=== PATIENT | female | born 1950 | race Caucasian/White ===

== ENCOUNTER 2022-10-09 11:18 | Outpatient (CLI) | payer MEDICARE, BC, SELFPAY | END 2022-10-09 11:19 | disposition home or self-care (01) | LOC: AMB 10-12 10:17 | PROVIDERS: PCP Family Medicine; Visit Provider Family Medicine | DX: R53.1 Weakness (principal) | CPT/HCPCS: A0998 ==

== ENCOUNTER 2022-10-10 20:57 | Emergency (ER) | payer MEDICARE, BC, SELFPAY ==
[2022-10-10 21:06] VITALS: BP 146/86; PULSE 76; RESP 16; TEMP 36.8; O2SAT 96
--- NOTE | 2022-10-10 21:23 | ED_ITS ---
HPI - General Adult General Chief complaint: Fall/Minor Trauma Stated complaint: fall Time Seen by Provider: 10/10/22 21:23 History of Present Illness HPI narrative: Pt complaining of right knee and berg pain. Pt stating Tylenol and Oxycodone are not working. Pt fell yesterday and today. Pt has appoint for physical therapy tomorrow in [place]. pt reports using wheelchair at home. had niece spend the night last night to help here 72-year-old woman presenting to the emergency department with complaint of right knee and lower leg area pain. Has been escalating lately and then gave out on her this last week she fell make taking care to fall on her left side. She has had injections in the past. Contacted Dr. Crooks who apparently prescribed 10 mg tablets of oxycodone. She has been taking them now not having had opiates for years she says and that just are not helping. She is calmly describing 15/10 pain. Indicates area of pain in the medial right knee and the lower right leg. Has been taking Tylenol oxycodone. Been told not to take up by ibuprofen apparently by Dr. Forrest due to her reflux. Has needed help at home just due to the degree of pain she is having. Again leg when out last week that does not sound like it is an absolutely uncommon occurrence. But then the leg when out again yesterday requiring EMS to help her up. She sat in a chair for some hours feeling like she could manage. Accompanied here by niece who is little frustrated with her at this point. Tegan in alf and had gotten some help from some neighbors. She was also recommended by Dr. Costello to use her wheelchair. She does have an electric wheelchair which has been helpful in getting around at the moment Related Data Home Medications Medication Instructions Recorded Confirmed citalopram 20 mg tablet 20 mg PO 02/18/22 02/18/22 omeprazole 40 mg capsule,delayed 40 mg PO 02/18/22 02/18/22 release trazodone 50 mg tablet 25 mg PO 02/18/22 02/18/22 Allergies Allergy/AdvReac Type Severity Reaction Status Date / Time No Known Drug Allergies Allergy Verified 02/18/22 15:51 Review of Systems Status of ROS: Reports: 6 or more systems reviewed and unremarkable except as noted in History and below [facility] Medical History Pre-diabetes ?R73.03 - Prediabetes (ICD-10) Chest pain ?R07.9 - Chest pain, unspecified (ICD-10) Depression ?F32.A - Depression, unspecified (ICD-10) Vaginal pain ?R10.2 - Pelvic and perineal pain (ICD-10) Vaginal discharge ?N89.8 - Other specified noninflammatory disorders of vagina (ICD-10) Obstructive sleep apnea (adult) (pediatric) ?G47.33 - Obstructive sleep apnea (adult) (pediatric) (ICD-10) Morbid obesity ?E66.01 - Morbid (severe) obesity due to excess calories (ICD-10) Laryngitis ?J04.0 - Acute laryngitis (ICD-10) Breast cancer (04/28/12) ?C50.919 - Malignant neoplasm of unspecified site of unspecified female breast (ICD-10) Benign paroxysmal positional vertigo ?H81.10 - Benign paroxysmal vertigo, unspecified ear (ICD-10) Surgical History H/O cystoscopy ?Z98.890 - Other specified postprocedural states (ICD-10) H/O: hysterectomy ?Z90.710 - Acquired absence of both cervix and uterus (ICD-10) History of cholecystectomy ?Z90.49 - Acquired absence of other specified parts of digestive tract (ICD- 10) Hx of appendectomy ?Z90.49 - Acquired absence of other specified parts of digestive tract (ICD- 10) History of bilateral mastectomy (04/28/12) ?Z90.13 - Acquired absence of bilateral breasts and nipples (ICD-10) Status post arthroscopy of right shoulder (12/20/08) ?Z98.890 - Other specified postprocedural states (ICD-10) Exam Narrative: Exam Narrative: Pleasant. Calm. Overweight. Head looks to be atraumatic. Examination of the right leg in question the are obese. There is some tenderness to palpation along the medial knee. There is a good deal of tenderness and some swelling then around the lateral aspect of the lower right leg down toward the ankle. Most tenderness in this area appears though to be about 3 in above the lateral malleolus. She also has some demonstrable pain be knee through the fibular head. There is a small abrasion the right lower outer leg. The lower right leg is a little more swollen the outer aspect than the left. Const: Vital Signs, click to edit/add: Vital Signs - 24 hr 10/10/22 21:06 Temperature 98.3 F Pulse Rate [Right Pulse Oximeter] 76 Respiratory Rate 16 Blood Pressure [Le ft Upper Arm] 146/86 H Pulse Oximetry 96 Oxygen Delivery Me thod Room Air Documenting provider has reviewed patient's vital signs: yes Course Vital Signs Vital signs: Initial Vital Signs Temperature 98.3 F 10/10/22 21:06 Temperature Source Temporal Artery Scan 10/10/22 21:06 Pulse Rate 76 10/10/22 21:06 Pulse Rhythm Regular 10/10/22 21:06 Respiratory Rate 16 10/10/22 21:06 Blood Pressure 146/86 H 10/10/22 21:06 Blood Pressure Mean 106 H 10/10/22 21:06 Blood Pressure Position Semi-Fowlers 10/10/22 21:06 Pulse Oximetry 96 10/10/22 21:06 Oxygen Delivery Method Room Air 10/10/22 21:06 Vital Signs Temperature 98.3 F 10/10/22 21:06 Pulse Rate 76 10/10/22 21:06 Respiratory Rate 16 10/10/22 21:06 Blood Pressure 146/86 H 10/10/22 21:06 Pulse Oximetry 96 10/10/22 21:06 Oxygen Delivery Method Room Air 10/10/22 21:06 Temperature 98.3 F 10/10/22 21:06 Pulse Rate 76 10/10/22 21:06 Respiratory Rate 16 10/10/22 21:06 Blood Pressure 146/86 H 10/10/22 21:06 Pulse Oximetry 96 10/10/22 21:06 Oxygen Delivery Method Room Air 10/10/22 21:06 Medical Decision Making MDM Narrative Medical decision making narrative: Will augment with some pain medication here and needs to do some imaging. Be difficult to assess ligamentous injury I think. I suspect that most knee sprain and exacerbation of underlying osteoarthritic pain. I have ordered x-rays of the right tib-fib and knee. Difficult to get an assessment of actual pain as calmly noting rather high degree of pain. Did dose with 2 tabs of 5/325 Percocet as well as injection of ketorolac. Imaging reviewed by me seems to show osteoarthritic changes but no acute bony abnormality. Degenerative knee in particular. I did go to re-examine and seems to have more tenderness in the calf and I appreciated prior. Suspect immobility and requested ultrasound of this leg. Imaging discussed with exceptional children's teacher noting absence of DVT. She has been able to sleep in the emergency department it appears. Pain is improved. Flexion of the knee still does cause pain. I think would benefit f rom knee immobilizer. Puzzling a bit as has oxycodone available and higher strength at home. Unclear why that would have not worked better. Did receive ketorolac here as well though. See patient discharge plan Medical Records Medical records reviewed: Yes I reviewed the patient's medical records Discharge Plan Discharge Clinical Impression: Leg pain, Osteoarthritis of knee Patient Disposition: Home w/ Parent or Adult Condition: Improved Additional Instructions: I think in these cases icing is always appropriate. I like those ice bags with the screw tablets. He can film with about a tray of ice and then water and then use an Edmond wrap to hold onto the area that hurts. Ice to 3 times daily over the next few days. I would probably start with your knee. I understand that you have physical therapy starting on Wednesday an appointment w ith Dr. Gallegos on Wednesday. I would still keep those appointments. Wear your knee immobilizer for comfort/as needed over the next week. You have oxycodone available. I think a singular dosing of 10 mg combined with 1000 mg of acetaminophen would be fine if needed. Prescriptions: No Action trazodone 50 mg tablet 25 mg PO Patient Comments: TAKE 0.5-1 TABLETS BY MOUTH AT BEDTIME. omeprazole 40 mg capsule,delayed release(DR/EC) 40 mg PO citalopram 20 mg tablet 20 mg PO Patient Comments: TAKE 1 TABLET BY MOUTH EVERY DAY Follow Up/Referrals: Shade Mcnair MD [Primary Care Provider] - Stand Alone Forms: [employer] Info Instructions
--- NOTE | 2022-10-10 21:42 | CRLHL7_ITS ---
For Patients: As a result of the Century Cures Act, medical imaging exams and procedure reports are released immediately into your electronic medical record. You may view this report before your referring provider. If you have questions, please contact your health care provider. INDICATION: Fall and outer leg pain. TECHNIQUE: Right tibia and fibula, 3 views. COMPARISON: Right knee radiographs 02/07/2020. FINDINGS: No acute fracture identified. The knee and ankle appear normally aligned. Degenerative changes of the knee. No significant knee joint effusion. Small plantar and Achilles calcaneal spurs. Soft tissues are unremarkable. IMPRESSION: No acute findings. Dictated by Luh Connor MD @ 10/10/2022 11:54:56 PM (Electronically Signed)
[2022-10-10] MEDS: KETOROLAC 60 MG/2 ML inj 45 MG IM (21:59)
[2022-10-10] MEDS: OxyCODONE/APAP 5-325 TABLET 2 TAB PO (21:59)
--- NOTE | 2022-10-11 | CRLHL7_ITS ---
For Patients: As a result of the Century Cures Act, medical imaging exams and procedure reports are released immediately into your electronic medical record. You may view this report before your referring provider. If you have questions, please contact your health care provider. INDICATION: Right lower extremity pain and swelling TECHNIQUE: Ultrasound venous duplex lower right extremity. Compression venous exam was performed using velasco-scale, color Doppler, and spectral Doppler imaging. COMPARISON: None. FINDINGS: Sonographic imaging demonstrates the right common femoral, femoral, popliteal, posterior tibial, peroneal and greater saphenous and the contralateral left common femoral veins to be fully compressible with normal color Doppler blood flow. IMPRESSION: No sonographic evidence of the right lower extremity deep venous thrombosis. Dictated by Kelly Pena MD @ 10/11/2022 2:01:34 AM Dictated by: Kelly Pena MD @ 10/11/2022 02:01:46 (Electronically Signed)
== END 2022-10-11 02:55 | disposition home or self-care (01) ==
PROVIDERS: Emergency Provider Family Medicine; PCP Family Medicine
DX: M17.11 Unilateral primary osteoarthritis, right knee (principal); M79.604 Pain in right leg
CPT/HCPCS: 73590; 93971; 96372; 99284; A9270; J1885

== ENCOUNTER 2024-06-21 11:06 | Outpatient (RCR) | payer MEDICARE, BC, SELFPAY ==
--- NOTE | 2024-06-21 11:49 | PT.OPEX ---
PT [facility] Outpatient Eval PT [facility] Outpatient Eval Start: 06/21/24 10:39 Freq: Status: Active Protocol: Document 06/21/24 10:44 HLA (Rec: 06/21/24 11:25 HLA [id number]) E-signed By Corry Michael, PT, DPT Physical Therapy Outpatient Evaluation Insurance Information Recert Due Date 09/18/24 Insurance Name Medicare B,[employer] Medical Diagnosis OA, undergoing R TKA 07/04/24. PMHx of obesity, chronic kidney disease, pre diabetes, anxiety, depression, PTSD, apnea, vertigo and falls Treating Diagnosis pain, stiffness, weakness R knee Referring MD Wang Subjective Preferred Name Marilyn Subjective Pt reports her R knee is bone on bone, painful, limits her walking. Pain Comments pain R knee, vee but no falls. Uses cane. Can go 2000 steps/day. Date of Last Physician Visit 06/12/24 Date of Surgery (If applicable) 07/04/24 Current Work Status Retired Precautions Treatment Precautions/Contraindications hx falls, obesity Weight Bearing Status Weight Bear as Tolerated Therapy Limitations/Systems Review Not Limited Objective Range of Motion AROM of shldrs full, elbow/ wrists/hands full R hip flex 0-100, abd 0-30, L hip 0-100 flex, abd 0-30 abd R knee flex 10-90 L 0-95 ankle DF to 10, PF to 50 B Strength 4/5 R LE, 4+/5 L LE UEs 5-/5 Swelling occ edema R knee Palpation medial joint line pain R knee Balance & Gait Amb antalgic R knee, does hold cane R hand, aware she should use L. Sitting good static/dynamic balance Standing fair static, fair dynamic with cane Sensation/Reflexes denies numbness/tingling feet and hands. Functional Test Performed & Score 5 time sit<>stand 16 sec functional reach 5.5 inches *shows fall risk Assessment Assessment/Impression Mary is a 73 year old female with hx R knee OA, obesity, chronic kidney disease, anxiety, depression, PTSD, apnea, vertigo, falls and prediabetes. She has had ongoing R knee pain with OA limiting her ability to amb, saw Dr. Wang and will be undergoing a R TKA on 07/04/24. She lives in the [facility], [place], drives. Uses a cane to walk because her knee vee mostly when going outdoors, no device in her apt . Has vertigo and sees a chiropractor regularly. Also gets PT at [facility] weekly for the past 2 years and will go there after surgery. Pt today presents with general weakness R > L LE, impaired ROM 5-95 R knee, difficulty amb due to fear of R knee buckling, does, uses cane in R hand. She rented a NICE machine. Pt has a cookie breaker, will borrow a walker, has a shower bench and bar if needed after surgery. [place] will be staying with her and she will do her PT [place] the [place] at [facility]. Pt was instructed in TKA ex program ( quad sets, ham sets, ankle pumps, heel slides, SAQ, SLR, seated knee flex/ext and hamstring stretches) per protocol to be practiced pre- operatively and for improved learning post-operatively. Pt was instructed in hospital post-op progression in PT, safety, fall prevention. Pt was instructed in positioning in chair, use of ice/polar care, bed, transfer safety, gt safety with walker, stairs, car transfers and outpatient therapy progression. Primary Functional Limitations harder to get shoes on, showers standing, gt limited due to fear of R knee buckling . Plan of Care Rehabilitation Potential Good Physical Therapy Goals 1. Within this session: Pt will verbalize understanding of pre-op/post-op safety, mobility and exercises with home program issued and pt returning for ongoing therapy after TKA replacement. Treatment Plan/Direct Interventions Dry Needling Frequency/Duration 1x. Patient Will Be Discharged From Therapy Completion of LTG(s),Skills Plateau,Independent w/HEP, Independently Progressing Evaluation Billing Untimed Code Treatment Minutes 20 PT Eval No Charge No Complexity Low Certification Information Initial Certification Date 06/21/24 Ending Certification Date 09/18/24 Provider Signature Required Yes Provider Signature Shows Agreement With POC & Medical Necessity Physician NPI Number Write NPI# Here Physician Comment/Change : Physician Signature & Date Requested Please Sign/Date Here
== END 2024-06-21 12:37 | disposition home or self-care (01) ==
PROVIDERS: PCP Family Medicine; Visit Provider Orthopaedic Surgery
DX: M17.11 Unilateral primary osteoarthritis, right knee (principal); Z96.651 Presence of right artificial knee joint; R53.1 Weakness; Z51.89 Encounter for other specified aftercare
CPT/HCPCS: 97110; 97161

== ENCOUNTER 2024-07-04 16:34 | Inpatient (IN) | payer MEDICARE, BC, SELFPAY ==
[2024-07-04] VITALS (18 sets, daily range): BP systolic 100–170; BP diastolic 44–100; PULSE 45–78; RESP 12–20; TEMP 36.1–36.9; O2SAT 91–99; BMI 50.3
[2024-07-04] MEDS: CELECOXIB 200 MG CAPSULE PO (09:50)
[2024-07-04] MEDS: ACETAMINOPHEN 500 MG TABLET 1000 MG PO ×3 (09:50→23:51)
[2024-07-04] MEDS: OXYCODONE (CR) 10 MG TAB.ER.12H PO (09:50)
[2024-07-04] MEDS: LACTATED RINGERS 1000 ML 1,000 ML 100 ML IV ×2 (10:10→13:58)
[2024-07-04] MEDS: SODIUM CHLORIDE 0.9 % (FLUSH) 10 ML SYRINGE IVF (10:14)
[2024-07-04] MEDS: fentaNYL 100 MCG/2 ML inj IVP (12:08)
[2024-07-04] MEDS: MIDAZOLAM HCL 1 MG/ML inj IVP (12:08)
--- NOTE | 2024-07-04 12:24 | SUR.PREOP ---
TIME?OUT:?1205 PT/jamarcus chou RN/karissa fierro MDA?VERIFICATION?OF?SURGICAL?SITE,?PROCEDURE,?AND?CONSENT OBTAINED?PRIOR?TO?INVASIVE?PROCEDURE.
[2024-07-04] MEDS: TRANEXAMIC ACID 100 MG/ML INJ 1000 MG IV (13:18)
[2024-07-04] MEDS: CEFAZOLIN 2 GM INJ IVP (13:18)
--- NOTE | 2024-07-04 15:07 | CRLHL7_ITS ---
For Patients: As a result of the Cures Act, medical imaging exams and procedure reports are released immediately into your electronic medical record. You may view this report before your referring provider. If you have questions, please contact your health care provider. Indication: Right knee arthroplasty Technique: Right knee 2 view Findings: Hardware from a right knee arthroplasty is in satisfactory position. Bone alignment is normal. No sign of acute fracture. There are postoperative changes in the soft tissues. Dictated by Greg Venegas MD @ 07/04/2024 8:29:26 PM (Electronically Signed)
--- NOTE | 2024-07-04 15:11 | PM.ORPRC ---
Procedure Note Date of procedure: 07/04/24 Procedure: PREOPERATIVE DIAGNOSIS: Right knee osteoarthritis POSTOPERATIVE DIAGNOSIS: Right knee osteoarthritis NAME OF OPERATION: Right total knee arthroplasty SURGEON: Jaret Wang MD MODELING TEACHER: CRISTOPHER Schmitt ANESTHESIA: Spinal ESTIMATED BLOOD LOSS: 0 mL COMPLICATIONS: None SPECIMENS: None DRAINS: None PREOPERATIVE ANTIBIOTICS: Ancef 2 grams, antibiotic impregnated cement IMPLANTS: 1. J&J Attune #6 revision CRS posterior stabilized femur, 14 mm x 50 mm cemented stem 2. # 5 revision CRS fixed-bearing tibia, 14 mm x 50 mm cemented stem 3. #6 revision CRS posterior stabilized, 6 mm fixed-bearing polyethylene 4. 38 patella INDICATIONS: The patient is a 73-year-old with a longstanding history of severe, unrelenting right knee pain secondary to end-stage (grade IV) right knee osteoarthritis. Despite appropriate nonoperative management, including activity modification, anti-inflammatories, isqt-vel-[id number] pain medication, bracing, physical therapy, and injections they continue to have pain and disability. Operative intervention was offered. The risks, benefits and expected outcomes were discussed in detail. These included but were not limited to: Infection, bleeding, injury to blood vessel or nerve, venous thromboembolism. All questions were answered to their satisfaction. Use of an resident care assistant was necessary throughout the case for patient positioning and safety, soft tissue retraction, and closure. A modifier 22 should be added to this case. The patient weighs 113 kg, BMI 50, 50 mm layer of adipose over the extensor mechanism. Preoperative range of motion was quite poor. All these factors made exposure quite difficult and more than doubled the time typically required to complete the case. Additionally, to decrease the risk of aseptic loosening stemmed components were used. This increased the cost of the case. PROCEDURE: Spinal anesthesia was administered. The patient was placed supine on the operating table. The resident care assistant made sure the patient was positioned appropriately. The lower extremity was prepped and draped in the usual sterile fashion. The limb was exsanguinated with the Miguel Ángel bandage. The pneumatic tourniquet was inflated to 300 mmHg. A standard anterior incision was made with the knee in flexion. Subcutaneous dissection was sharply taken through fascial layer #1. Full-thickness medial and lateral flaps were elevated. The resident care assistant retracted the soft tissues and protected them throughout the case. A standard subvastus approach was made. The patella was subluxed. The infrapatellar fat pad was debrided. The menisci and cruciate ligaments were sharply d?brided. Marginal osteophytes were d?brided with the rongeur. The drill was used to penetrate the femoral canal. The canal was aspirated and irrigated with pulse lavage. The intramedullary femoral guide was placed for a 5-degree valgus cut, removing 12 mm off the distal femur. The saw was used to make the cut. Whitesides line and the trans epicondylar axis were marked. The femoral sizing guide was pinned onto the distal femur. Three degrees of external rotation nicely parallels the transepicondylar axis. Pins were placed for posterior referencing. The four-in-one cutting guide was pinned onto the distal femur. The anterior, posterior, and chamfer cuts were made. The resident care assistant protected the collateral ligaments. The revision trial was placed. The box cuts were made. The drill was used x2. The stemmed, boxed trial was placed and was an excellent fit. Attention was then turned to the proximal tibia. Given the size of the patient's ankle, the intramedullary tibial guide was placed for a neutral varus/valgus cut with 3 degrees of posterior slope, removing 2 mm based off the medial tibial surface. The resident care assistant protected the collateral ligaments and the neurovascular bundle. The saw was used to make the cut. Trial components were placed. The knee was nicely balanced in both flexion and extension. The trial components were removed. The tray was placed in appropriate rotation, parallel to our tibial cutting pins. It was pinned by the resident care assistant and the drill x2 was used. The stemmed tibial trial was placed. The punch was used. The tray was removed. The punch was used again. Attention was then turned to the patella. Comanche patellar thickness was 21.5 mm. The lobster claw resection guide was used with the 9.5 mm julio. The saw was used to make the cut. Drill holes were made by the resident care assistant. The trial was placed and was an excellent fit. Cancellous surfaces were irrigated with pulse lavage and thoroughly dried by the resident care assistant. We cemented the tibial component, then the femoral component. We impacted the 6 mm polyethylene onto the tibial tray. The knee was brought into full extension. We then cemented the patellar component. Excessive cement was removed. The cement was allowed to harden. The knee was taken through a range of motion and was found to be nicely balanced in both flexion and extension. The patella tracks centrally. The resident care assistant did a three minute dilute Betadine solution soak. The resident care assistant irrigated the wound with 3 liters of normal saline via pulse lavage. The resident care assistant reapproximated the extensor mechanism with #1 Vicryl in an interrupted [id number]-[id number] fashion. The resident care assistant then ran the extensor mechanism with a #1 PDO Stratafix. The resident care assistant closed the subcutaneous tissues with a 3-0 Stratafix and the skin with a running 3-0 Stratafix in a subcuticular fashion. Glue was used to seal the skin. The resident care assistant placed a dry dressing. Sponge and needle counts were correct x2. The patient tolerated the procedure well. There were no apparent complications. They were carefully transferred to the hospital bed and taken to the postanesthesia care unit in satisfactory condition. PLAN: The patient will be mobilized with physical therapy. Aspirin will be used for DVT prophylaxis. They will be discharged to home once medically appropriate.
--- NOTE | 2024-07-04 15:58 | P.ANES_ITS ---
Anesthesia Charges Start Date/Time Anesthesia Start Date: 07/04/24 Anesthesia Start Time: 12:47 Stop Date/Time Anesthesia Stop Date: 07/04/24 Anesthesia Stop Time: 15:54 Summary Extremes of Age - Over 70 or under 1: MDA Coding CPT Codes CPT Codes: ANESTH KNEE ARTHROPLASTY - 79713 ([id number]) P3 - PATIENT W/SEVERE SYS DISEASE, QK - LIVESTOCK TRUCKER 2-4 CNCRNT ANES PROC, QX - LEAD NETWORK ARCHITECT SVC W/ MD MED DIRECTION Additional Codes: Summary - Extremes of Age - Over 70 or under 1: MDA ([id number])
--- NOTE | 2024-07-04 15:58 | W.PM.NB ---
Nerve Block Nerve Block Time Seen by Provider: 12:10 Date Seen: 07/04/24 Type of block requested by surgeon for post-operative analgesia: adductor canal Side: right Time out performed: Yes Verification of patient name: Yes Verification of date of : Yes Site marking: site marked Name of person performing procedure: Gavino Continuous monitoring Was continuous monitoring of O2 sat, B/P, cardiac technologist, recorded every 15 minutes?: Yes Procedure Checklist: sterile prep, needles and gloves Ultrasound guided. Images saved: Yes Medications given in 5ml increments after negative aspiration: Marcaine %: 0.25 mL: 15 Needle gauge: 20 Precedex (mcg): 25 Patient tolerated procedure well: Yes Block Charges Block Charge (with Pro Fee): Femoral Nerve Use of Ultrasound Machine for Block: Yes- US Guidance/pain block
--- NOTE | 2024-07-04 15:58 | W.ANESCHARGE ---
Anesthesia Charges Start Date/Time Anesthesia Start Date: 07/04/24 Anesthesia Start Time: 12:47 Stop Date/Time Anesthesia Stop Date: 07/04/24 Anesthesia Stop Time: 15:54 Summary Extremes of Age - Over 70 or under 1: MDA Coding CPT Codes CPT Codes: ANESTH KNEE ARTHROPLASTY - 39841 ([id number]) P3 - PATIENT W/SEVERE SYS DISEASE, QK - TUB PULLER 2-4 CNCRNT ANES PROC, QX - SHEET ROCK TAPER SVC W/ MD MED DIRECTION Additional Codes: Summary - Extremes of Age - Over 70 or under 1: MDA ([id number])
--- NOTE | 2024-07-04 16:00 | P.ANES_ITS ---
Anesthesia Charges Start Date/Time Anesthesia Start Date: 07/04/24 Anesthesia Start Time: 12:47 Stop Date/Time Anesthesia Stop Date: 07/04/24 Anesthesia Stop Time: 15:54 Summary Extremes of Age - Over 70 or under 1: TURNING MACHINE SET UP OPERATOR Coding CPT Codes CPT Codes: ANESTH KNEE ARTHROPLASTY - 41344 ([id number]) P3 - PATIENT W/SEVERE SYS DISEASE, QK - SENIOR PRODUCT MANAGER 2-4 CNCRNT ANES PROC, QX - TURNING MACHINE SET UP OPERATOR SVC W/ MD MED DIRECTION Additional Codes: Summary - Extremes of Age - Over 70 or under 1: TURNING MACHINE SET UP OPERATOR ([id number])
--- NOTE | 2024-07-04 16:00 | W.ANESCHARGE ---
Anesthesia Charges Start Date/Time Anesthesia Start Date: 07/04/24 Anesthesia Start Time: 12:47 Stop Date/Time Anesthesia Stop Date: 07/04/24 Anesthesia Stop Time: 15:54 Summary Extremes of Age - Over 70 or under 1: LEAD MANUFACTURING ENGINEER Coding CPT Codes CPT Codes: ANESTH KNEE ARTHROPLASTY - 63625 ([id number]) P3 - PATIENT W/SEVERE SYS DISEASE, QK - BUSINESS AND MARKETING TEACHER 2-4 CNCRNT ANES PROC, QX - LEAD MANUFACTURING ENGINEER SVC W/ MD MED DIRECTION Additional Codes: Summary - Extremes of Age - Over 70 or under 1: LEAD MANUFACTURING ENGINEER ([id number])
[2024-07-04] MEDS: CARBOXYMETHYLCELLULOSE (REFRESH PLUS) TEARS 1 DROP EYE-BOTH ×2 (18:32→19:40)
[2024-07-04] MEDS: LACTATED RINGERS 1000 ML 1,000 ML 75 ML IV (18:34)
[2024-07-04] MEDS: CEFAZOLIN 2 GM in 0.9 % SODIUM CHLORIDE Mini-bag 100 ML IVPB (18:41)
--- NOTE | 2024-07-04 19:21 | P.IMCN_ITS ---
Date of Consult Patient: Hugo Patient Consult date: 07/04/24 Requesting Physician: Orthopedics Primary Care Provider: Shade Mcnair MD Consult Narrative Reason for consult: Prediabetes, obesity, vertigo, insomnia Narrative: Mary Kerns is a 73 year old female with a h/o breast cancer 12 years ago, EMILIANO, obesity who underwent an elective right total hip arthroplasty by Dr. Wang today for severe osteoarthritis. She is doing well postoperatively. She notes feeling sleepy and having dry, scratchy eyes. She tells me that that happens sometimes. She also gets intermittent pains in her abdomen that stretch from her right upper quadrant to her umbilicus ever since she had her gallbladder out. She takes hyoscyamine as needed for that. Review of Systems Status of ROS: Reports: 6 or more systems reviewed and unremarkable except as noted in History and below [facility] Medical History (Updated 07/04/24 @ 19:51 by Kandy Nunez MD) IBS (irritable bowel syndrome) ?K58.9 - Irritable bowel syndrome, unspecified (ICD-10) Osteopenia of left hip ?M85.852 - Other specified disorders of bone density and structure, left thigh (ICD-10) EMILIANO (obstructive sleep apnea) ?G47.33 - Obstructive sleep apnea (adult) (pediatric) (ICD-10) Vertigo ?R42 - Dizziness and giddiness (ICD-10) Stage 3b chronic kidney disease ?N18.32 - Chronic kidney disease, stage 3b (ICD-10) Unspecified urinary incontinence ?R32 - Unspecified urinary incontinence (ICD-10) PTSD (post-traumatic stress disorder) ?F43.10 - Post-traumatic stress disorder, unspecified (ICD-10) Depression with anxiety ?F41.8 - Other specified anxiety disorders (ICD-10) Trigeminal neuralgia ?G50.0 - Trigeminal neuralgia (ICD-10) Pre-diabetes ?R73.03 - Prediabetes (ICD-10) Chest pain ?R07.9 - Chest pain, unspecified (ICD-10) Vaginal pain ?R10.2 - Pelvic and perineal pain (ICD-10) Vaginal discharge ?N89.8 - Other specified noninflammatory disorders of vagina (ICD-10) Morbid obesity ?E66.01 - Morbid (severe) obesity due to excess calories (ICD-10) Laryngitis ?J04.0 - Acute laryngitis (ICD-10) Breast cancer (04/28/12) ?C50.919 - Malignant neoplasm of unspecified site of unspecified female breast (ICD-10) Benign paroxysmal positional vertigo ?H81.10 - Benign paroxysmal vertigo, unspecified ear (ICD-10) Surgical History (Updated 07/04/24 @ 19:46 by Kandy Nunez MD) Status post total right knee replacement ?Z96.651 - Presence of right artificial knee joint (ICD-10) History of total right knee replacement (07/04/24) ?Z96.651 - Presence of right artificial knee joint (ICD-10) History of esophagogastroduodenoscopy (EGD) ?Z98.890 - Other specified postprocedural states (ICD-10) Hx of colonoscopy ?Z98.890 - Other specified postprocedural states (ICD-10) S/P right rotator cuff repair (~2009) ?Z98.890 - Other specified postprocedural states (ICD-10) H/O cystoscopy ?Z98.890 - Other specified postprocedural states (ICD-10) H/O: hysterectomy ?Z90.710 - Acquired absence of both cervix and uterus (ICD-10) History of cholecystectomy (~2014) ?Z90.49 - Acquired absence of other specified parts of digestive tract (ICD- 10) Hx of appendectomy ?Z90.49 - Acquired absence of other specified parts of digestive tract (ICD- 10) History of bilateral mastectomy (04/28/12) ?Z90.13 - Acquired absence of bilateral breasts and nipples (ICD-10) Status post arthroscopy of right shoulder (12/20/08) ?Z98.890 - Other specified postprocedural states (ICD-10) Family History Other CHF (congestive heart failure) Cardiovascular disease Diabetes High blood pressure Leukemia Lung cancer Myocardial infarction Pancreatic cancer Stroke Social History (Updated 07/04/24 @ 19:25 by Kandy Nunez MD) Narrative: Omi, great niece staying with her for a few days, then niece will stay for a few days. Neighbors also will help out. Denies tobacco use, denies EtOH, denies recreational drugs. What is your current living situation?: I presently have a place to live In past 12 months, lack of transportation kept you from medical appts, meetings, work, or getting things needed for daily living: no In the past 12 mos, have been you worried that your food would run out before you had money to buy more?: never true Smoking Status: Never smoker Do you use any of these nicotine containing products: None Second hand tobacco smoke exposure: No How often do you have a drink containing alcohol: never AUDIT-C Alcohol total score: 0 Non-prescribed substance use: denies use Caffeine: Yes How often does anyone, including family, friends and others, physically hurt you : never Meds Home Medications and Allergies Home Medications ?Medication ?Instructions ?Recorded ?Confirmed ?Type omeprazole 40 mg capsule,delayed 40 mg PO DAILY 02/18/22 07/04/24 History release trazodone 50 mg tablet 25 - 50 mg PO HS 02/18/22 07/04/24 History citalopram 20 mg tablet 20 mg PO DAILY 01/13/23 07/04/24 History hyoscyamine sulfate 0.125 mg tablet 0.125 mg PO Q4H PRN 01/13/23 07/04/24 History cinnamon bark 500 mg capsule 500 mg PO QDAY 05/17/23 07/04/24 History (Cinnamon) cyanocobalamin (vitamin B-12) 500 mcg PO QDAY 05/17/23 07/04/24 History 1,000 mcg tablet (Vitamin B-12) benzonatate 200 mg capsule 200 mg PO 3XD PRN cough 05/15/24 07/04/24 History codeine 10 mg-guaifenesin 100 mg/5 5 ml PO Q4H PRN cough 05/15/24 07/04/24 History mL oral liquid calcium 600 mg (as 1 tab PO DAILY 07/04/24 07/04/24 History carbonate)-vitamin D3 10 mcg (400 unit) tablet (Calcium 600 + D(3)) Allergies Allergy/AdvReac Type Severity Reaction Status Date / Time Influenza Virus Vaccines AdvReac Unknown Verified 07/04/24 10:25 Exam Narrative: Exam Narrative: General: No acute distress. Awake alert oriented x3. HEENT: Normocephalic atraumatic, pupils equally round and reactive to light and accommodation. Oropharynx clear. Mucous membranes are moist. No cervical lymphadenopathy, thyromegaly or carotid bruits. No JVD. Cardiovascular: Regular rate and rhythm. No murmurs, gallops, or rubs. Chest: No increased work of breathing. Clear to auscultation bilaterally. No crackles or wheezes. Abdomen: Bowel sounds present. Soft, nondistended, nontender. No hepatosplenomegaly or masses. Extremities: Right knee bandages are clean, dry, and intact. No edema, no cyanosis or clubbing. Skin: No jaundice, no pallor, no rashes. Neuro: Grossly intact. No focal deficits. Const: Vital Signs, click to edit/add: Vital Signs - 24 hr 07/04/24 10:08 07/04/24 12:08 07/04/24 12:15 Temperature 97.8 F Pulse Rate 73 55 L 52 L Respiratory Rate 20 20 20 Blood Pressure 140/70 H 118/54 L 100/53 L Pulse Oximetry 96 96 96 Oxygen Delivery Me thod Room Air Nasal Cannula Nasal Cannula Oxygen Flow Rate 3 3 07/04/24 15:55 07/04/24 16:00 07/04/24 16:05 Temperature 98.4 F Pulse Rate 60 64 60 Respiratory Rate 12 12 12 Blood Pressure 109/61 116/62 126/70 Pulse Oximetry 92 91 97 Oxygen Delivery Me thod Room Air Room Air Room Air Oxygen Flow Rate 07/04/24 16:10 07/04/24 16:15 07/04/24 16:20 Temperature Pulse Rate 62 60 61 Respiratory Rate 12 12 12 Blood Pressure 131/69 128/68 138/76 Pulse Oximetry 99 98 96 Oxygen Delivery Me thod Room Air Room Air Room Air Oxygen Flow Rate 07/04/24 16:25 07/04/24 16:37 07/04/24 16:45 Temperature 98 F 96.9 F L 96.9 F L Pulse Rate 60 59 L 48 L Respiratory Rate 14 14 14 Blood Pressure 128/79 139/74 152/83 H Pulse Oximetry 93 93 93 Oxygen Delivery Me thod Room Air Room Air Room Air Oxygen Flow Rate 07/04/24 17:00 07/04/24 17:15 07/04/24 17:30 Temperature 97.4 F L Pulse Rate 57 L 46 L 45 L Respiratory Rate 14 14 14 Blood Pressure 151/88 H 170/100 H 142/83 H Pulse Oximetry 92 92 93 Oxygen Delivery Me thod Room Air Room Air Room Air Oxygen Flow Rate 0 0 0 07/04/24 18:00 Temperature 97.5 F L Pulse Rate 48 L Respiratory Rate 14 Blood Pressure 158/78 H Pulse Oximetry 93 Oxygen Delivery Me thod Room Air Oxygen Flow Rate 0 Assessment and Plan Assessment and plan (1) Status post total right knee replacement: Problem comment: - 07/04/24 Felipe Status: Acute Assessment and Plan: - routine post op cares - VTE prophylaxis: Aspirin BID, SCDs (2) Benign paroxysmal positional vertigo: Problem comment: - intermittent Status: Chronic Assessment and Plan: - not currently vertiginous - continue home meclizine as needed (3) EMILIANO (obstructive sleep apnea): Problem comment: 07/06/2004 AHI/RDI:17 Status: Chronic Assessment and Plan: - monitor for excessive sleepiness and respiratory depression while on narcotics (4) Obesity: Problem comment: BMI 48.2 (previous BMI 45.9) Status: Chronic (5) Pre-diabetes: Problem comment: 06/15/24 HgbA1C 6.2% Status: Chronic (6) Lumbar degenerative disc disease: Status: Chronic
[2024-07-04] MEDS: OXYCODONE 5 MG TABLET PO ×2 (20:44→22:13)
[2024-07-04] MEDS: ASPIRIN 81 MG TABLET EC PO (22:11)
[2024-07-04] MEDS: SENNOSIDES 1 TAB TABLET 2 TAB PO (22:11)
[2024-07-04] MEDS: TRAZODONE HCL 50 MG TABLET PO (22:11)
--- NOTE | 2024-07-04 22:24 | PC.NURSE ---
Patient ambulating in the room/galloway with assist of 1, walker and gait belt. This is pt's first joint surgery. SCD's are in place. Rating pain at a 5/10 in right knee. Oxycodone given PRN. Ice in place. CMS is intact.
[2024-07-05] MEDS: CEFAZOLIN 2 GM in 0.9 % SODIUM CHLORIDE Mini-bag 100 ML IVPB (02:52)
[2024-07-05] MEDS: OXYCODONE 5 MG TABLET PO ×2 (02:54→09:04)
[2024-07-05 03:01] VITALS: BP 123/57; PULSE 64; RESP 16; TEMP 36.4; O2SAT 97
[2024-07-05] MEDS: MECLIZINE HCL 25 MG TABLET 12.5 MG PO (03:13)
[2024-07-05] MEDS: ACETAMINOPHEN 500 MG TABLET 1000 MG PO (05:57)
--- NOTE | 2024-07-05 06:23 | PC.NURSE ---
Pt alert and oriented x3. Afebrile. Pt reports 1-3/10 pain in right knee, managed with ice pack, scheduled and PRN medications. Pt's right knee dressing is CDI. Pt reports she has not passed gas yet. Pt is up SBA with walker and gait belt, voiding, and tolerating a regular diet.
[2024-07-05 06:50] LABS: Basophils Absolute Auto 0.01 K/uL (0.00-0.30); Basophils Percent Auto 0.1 % (0.0-3.0); Hematocrit 32.3 % (33.0-51.0); Immature Granulocytes Abs Auto 0.15 K/uL (0.00-0.30); Immature Granulocytes Pct Auto 1.5 %; Lymphocytes Percent Auto 8.4 % (20-44); Mean Corpuscular HGB Conc 34 gm/dL (32-36); Mean Corpuscular Hemoglobin 29 pg (26-34); Mean Corpuscular Volume 85 fL (80-100); Platelet Count* 200 K/uL (140-440); RDW Coefficient of Variation % 12.9 % (11.5-15.5); White Blood Count* 10.08 K/uL (4.50-11.00)
[2024-07-05 07:00] VITALS: BP 119/46; PULSE 68; RESP 18; TEMP 36.4; O2SAT 97
[2024-07-05 07:08] LABS: Slide Review Reflex No
[2024-07-05 07:18] LABS: Sodium* 134 mmol/L (135-149)
[2024-07-05 07:19] LABS: Potassium* 4.5 mmol/L (3.6-5.1)
[2024-07-05 07:22] LABS: Blood Urea Nitrogen* 17 mg/dL (7-30); Creatinine* 1.1 mg/dL (0.5-1.5); Est. Creatinine Clearance* 81.25; Estimated Glomerular Filt Rate 53 ml/min
[2024-07-05 07:29] LABS: Prothrombin Time 16.1 Seconds
[2024-07-05] MEDS: SENNOSIDES 1 TAB TABLET 2 TAB PO (09:05)
[2024-07-05] MEDS: ASPIRIN 81 MG TABLET EC PO (09:05)
[2024-07-05] MEDS: CITALOPRAM HYDROBROMIDE 20 MG TABLET PO (09:05)
[2024-07-05] MEDS: OMEPRAZOLE 20 MG CAPSULE DR 40 MG PO (09:05)
--- NOTE | 2024-07-05 09:10 | P.ORPN_ITS ---
Subjective Subjective Time Seen by Provider: 07:30 Date Seen: 07/05/24 Principal diagnosis: Status post right knee replacement Interval history: Marilyn is comfortable at rest. She denies nausea or vomiting. She will be discharging to home today. Ortho Exam Narrative Exam Narrative: Alert and oriented x3. Patient is in no acute distress. Converses without labored breathing. Hearing is grossly intact. Ambulates with a walker. Examination of the right knee shows dressing is intact. Mild edema. Mild effusion. CMS intact right lower extremity. She is able to straight leg raise. Calves are soft and nontender. Const Vital Signs, click to edit/add: Vital Signs - 24 hr 07/04/24 10:08 07/04/24 12:08 07/04/24 12:15 Temperature 97.8 F Pulse Rate 73 55 L 52 L Pulse Rate [Pulse Oximeter] Respiratory Rate 20 20 20 Blood Pressure 140/70 H 118/54 L 100/53 L Blood Pressure [Left Arm] Pulse Oximetry 96 96 96 Oxygen Delivery Method Room Air Nasal Cannula Nasal Cannula Oxygen Flow Rate 3 3 07/04/24 15:55 07/04/24 16:00 07/04/24 16:05 Temperature 98.4 F Pulse Rate 60 64 60 Pulse Rate [Pulse Oximeter] Respiratory Rate 12 12 12 Blood Pressure 109/61 116/62 126/70 Blood Pressure [Left Arm] Pulse Oximetry 92 91 97 Oxygen Delivery Method Room Air Room Air Room Air Oxygen Flow Rate 07/04/24 16:10 07/04/24 16:15 07/04/24 16:20 Temperature Pulse Rate 62 60 61 Pulse Rate [Pulse Oximeter] Respiratory Rate 12 12 12 Blood Pressure 131/69 128/68 138/76 Blood Pressure [Left Arm] Pulse Oximetry 99 98 96 Oxygen Delivery Method Room Air Room Air Room Air Oxygen Flow Rate 07/04/24 16:25 07/04/24 16:37 07/04/24 16:45 Temperature 98 F 96.9 F L 96.9 F L Pulse Rate 60 59 L 48 L Pulse Rate [Pulse Oximeter] Respiratory Rate 14 14 14 Blood Pressure 128/79 139/74 152/83 H Blood Pressure [Left Arm] Pulse Oximetry 93 93 93 Oxygen Delivery Method Room Air Room Air Room Air Oxygen Flow Rate 07/04/24 17:00 07/04/24 17:15 07/04/24 17:30 Temperature 97.4 F L Pulse Rate 57 L 46 L 45 L Pulse Rate [Pulse Oximeter] Respiratory Rate 14 14 14 Blood Pressure 151/88 H 170/100 H 142/83 H Blood Pressure [Left Arm] Pulse Oximetry 92 92 93 Oxygen Delivery Method Room Air Room Air Room Air Oxygen Flow Rate 0 0 0 07/04/24 18:00 07/04/24 19:00 07/04/24 23:48 Temperature 97.5 F L 98.2 F Pulse Rate 48 L 78 Pulse Rate [Pulse Oximeter] 67 Respiratory Rate 14 14 Blood Pressure 158/78 H 131/75 Blood Pressure [Left Arm] Pulse Oximetry 93 93 Oxygen Delivery Method Room Air Room Air Oxygen Flow Rate 0 0 07/04/24 23:48 07/04/24 23:48 07/05/24 03:01 Temperature 97.8 F 97.6 F Pulse Rate Pulse Rate [Pulse Oximeter] 67 64 Respiratory Rate 18 18 16 Blood Pressure Blood Pressure [Left Arm] 112/44 L 123/57 L Pulse Oximetry 95 95 97 Oxygen Delivery Method Room Air Room Air Room Air Oxygen Flow Rate 0 07/05/24 07:00 Temperature 97.6 F Pulse Rate Pulse Rate [Pulse Oximeter] 68 Respiratory Rate 18 Blood Pressure Blood Pressure [Left Arm] 119/46 L Pulse Oximetry 97 Oxygen Delivery Method Room Air Oxygen Flow Rate Assessment and Plan Assessment and plan (1) Status post total right knee replacement: Problem details: - 07/04/24 Felipe Status: Acute Assessment and Plan: Plan for discharge is today to home if they meet discharge criteria. DVT prophylaxis includes aspirin 81 mg twice daily x1 month, Compression stocki ngs as needed for swelling. Frequent ambulation, every hour throughout the day. Remove dressing in 1 week. Observe wound and phone Orthopedics with any questions or concerns Return to clinic in 1 week for a wound check Return to clinic in 6 weeks with surgeon Minimize narcotic use. Wean off and discontinue soon as possible. Activities as tolerated. No strenuous activity. Outpatient physical therapy as scheduled. Ice and elevate the operative extremity. No restriction on ice.
--- NOTE | 2024-07-05 12:06 | PC.NURSE ---
Discharge: Patient pleasant and cooperative, A&O. VSS, afebrile. Patient reports pain on her right knee, managed with PRN medication, see MAR. Tolerating regular diet. IV removed with tip intact. Discharge instructions provided, all questions answered. Discharged to home via wheelchair with family member.
== END 2024-07-05 11:48 | disposition home or self-care (01) | DRG 470 ==
LOC: OR 07-05 09:13 → MEDSURG 07-05 09:14
PROVIDERS: Admitting Provider Orthopaedic Surgery; PCP Family Medicine; Visit Provider Orthopaedic Surgery
PROC: 0SRC0J9 Replacement of Right Knee Joint with Synthetic Substitute, Cemented, Open Approach (ICD-10-PCS; CPT 27447; principal; 2024-07-04 11:45)
DX: M17.11 Unilateral primary osteoarthritis, right knee (principal); Z68.43 Body mass index [BMI] 50.0-59.9, adult; G89.18 Other acute postprocedural pain; G47.33 Obstructive sleep apnea (adult) (pediatric); E66.01 Morbid (severe) obesity due to excess calories; R42 Dizziness and giddiness; Z79.82 Long term (current) use of aspirin; R73.03 Prediabetes; G47.00 Insomnia, unspecified; K58.9 Irritable bowel syndrome, unspecified; M51.369 Other intervertebral disc degeneration, lumbar region without mention of lumbar back pain or lower extremity pain; N18.32 Chronic kidney disease, stage 3b; M85.852 Other specified disorders of bone density and structure, left thigh; R32 Unspecified urinary incontinence; F41.8 Other specified anxiety disorders; F43.10 Post-traumatic stress disorder, unspecified
CPT/HCPCS: 01402; 36415; 64447; 73560; 76942; 82565; 84132; 84295; 84520; 85025; 85610; 97110; 97116; 97161; 97166; 97530; 97535; 99100; A9270; C1776; J0665; J0690; J1100; J2250; J2405; J2704; J3010; J3490; J7120

== ENCOUNTER 2024-12-26 06:11 | Day surgery (SDC) | payer MEDICARE, BC, SELFPAY ==
[2024-12-26] VITALS (10 sets, daily range): BP systolic 112–138; BP diastolic 56–74; PULSE 62–83; RESP 14–20; TEMP 36.2–36.7; O2SAT 96–98; BMI 44.7
[2024-12-26] MEDS: SODIUM CHLORIDE 0.9 % (FLUSH) 10 ML SYRINGE IVF (07:00)
[2024-12-26] MEDS: LACTATED RINGERS 1000 ML 1,000 ML 100 ML IV (07:00)
--- NOTE | 2024-12-26 07:52 | P.ANES_ITS ---
Anesthesia Charges Start Date/Time Anesthesia Start Date: 12/26/24 Anesthesia Start Time: 07:23 Stop Date/Time Anesthesia Stop Date: 12/26/24 Anesthesia Stop Time: 08:31 Summary Extremes of Age - Over 70 or under 1: MDA Coding CPT Codes CPT Codes: ANESTH KNEE JOINT SURGERY - 68578 ([id number]) P3 - PATIENT W/SEVERE SYS DISEASE, QK - DOLLY OPERATOR 2-4 CNCRNT ANES PROC, QX - DIRECTOR NON PROFIT SVC W/ MD MED DIRECTION Additional Codes: Summary - Extremes of Age - Over 70 or under 1: MDA ([id number])
--- NOTE | 2024-12-26 07:52 | W.ANESCHARGE ---
Anesthesia Charges Start Date/Time Anesthesia Start Date: 12/26/24 Anesthesia Start Time: 07:23 Stop Date/Time Anesthesia Stop Date: 12/26/24 Anesthesia Stop Time: 08:31 Summary Extremes of Age - Over 70 or under 1: MDA Coding CPT Codes CPT Codes: ANESTH KNEE JOINT SURGERY - 68754 ([id number]) P3 - PATIENT W/SEVERE SYS DISEASE, QK - FLOORLEADER 2-4 CNCRNT ANES PROC, QX - POWER SYSTEM ELECTRICAL ENGINEER SVC W/ MD MED DIRECTION Additional Codes: Summary - Extremes of Age - Over 70 or under 1: MDA ([id number])
[2024-12-26] MEDS: BUPIVACAINE 0.25% 30 ML INJECTION (08:15)
--- NOTE | 2024-12-26 08:21 | P.ORPRC_ITS ---
Procedure Note Date of procedure: 12/26/24 Procedure: PREOPERATIVE DIAGNOSIS: Right total knee arthroplasty patellar clunk syndrome POSTOPERATIVE DIAGNOSIS: Right total knee arthroplasty patellar clunk syndrome NAME OF OPERATION: Right total knee arthroplasty arthroscopic debridement SURGEON: Jaret Wang MD PLATING TECHNICIAN: Rosalba Saravia PA-C ANESTHESIA: Spinal ESTIMATED BLOOD LOSS: 0 mL COMPLICATIONS: None SPECIMENS: None DRAINS: None PREOPERATIVE ANTIBIOTICS: Ancef 2 gram INDICATIONS: The patient is a 74-year-old with a history of right total knee arthroplasty patellar clunk syndrome. Operative intervention was recommended. The risks, benefits and expected outcomes were discussed in detail. These included but were not limited to: Infection, bleeding, injury to blood vessel or nerve, venous thromboembolism. All questions were answered to their satis faction. PROCEDURE: Spinal anesthesia was administered. The patient was placed supine on the operating room table. The right lower extremity was prepped and draped in the usual sterile fashion. The limb was exsanguinated with the Miguel Ángel bandage. The pneumatic tourniquet was inflated to 300 mmHg. A standard anterolateral portal was established. The arthroscope was introduced. The working portal was established anteromedially. Diagnostic arthroscopy was performed with findings as follows: The patellar component is intact with circumferential scarring surrounding it. The femoral component is normal, the tibial polyethylene is normal. The scarring posterior to the patellar tendon was debrided with the radiofrequency probe and shaver. A superolateral portal was placed. Then we ag gressively debrided around the patellar component and posterior to the quads tendon with the shaver and radiofrequency probe. Arthroscopic instruments were removed, the portal sites were closed with a 3-0 nylon. Portals were injected with 0.25% Marcaine without epinephrine. A dry dressing was applied, the tourniquet was released. Sponge and needle counts were correct x 2. The patient tolerated the procedure well. There were no apparent complications. They were carefully transferred to the hospital bed and taken to the postanesthesia care unit in satisfactory condition. PLAN: The patient will be discharged to home. They may weightbear as tolerates. Range of motion will be unrestricted. They will follow up in the office in 2 weeks for a wound check and suture removal.
--- NOTE | 2024-12-26 08:29 | P.ANES_ITS ---
Anesthesia Charges Start Date/Time Anesthesia Start Date: 12/26/24 Anesthesia Start Time: 07:23 Stop Date/Time Anesthesia Stop Date: 12/26/24 Anesthesia Stop Time: 08:31 Summary Extremes of Age - Over 70 or under 1: LAST TRIMMER Coding CPT Codes CPT Codes: ANESTH KNEE JOINT SURGERY - 05834 ([id number]) P3 - PATIENT W/SEVERE SYS DISEASE, QK - MOTION STUDY ANALYST 2-4 CNCRNT ANES PROC, QX - LAST TRIMMER SVC W/ MD MED DIRECTION Additional Codes: Summary - Extremes of Age - Over 70 or under 1: LAST TRIMMER ([id number])
--- NOTE | 2024-12-26 08:29 | W.ANESCHARGE ---
Anesthesia Charges Start Date/Time Anesthesia Start Date: 12/26/24 Anesthesia Start Time: 07:23 Stop Date/Time Anesthesia Stop Date: 12/26/24 Anesthesia Stop Time: 08:31 Summary Extremes of Age - Over 70 or under 1: DELICATE FABRICS PRESSER Coding CPT Codes CPT Codes: ANESTH KNEE JOINT SURGERY - 59224 ([id number]) P3 - PATIENT W/SEVERE SYS DISEASE, QK - CRISIS CLINICIAN 2-4 CNCRNT ANES PROC, QX - DELICATE FABRICS PRESSER SVC W/ MD MED DIRECTION Additional Codes: Summary - Extremes of Age - Over 70 or under 1: DELICATE FABRICS PRESSER ([id number])
== END 2024-12-26 10:25 | disposition home or self-care (01) ==
PROVIDERS: PCP Family Medicine; Visit Provider Orthopaedic Surgery
PROC: (CPT 29870; principal; 2024-12-26 07:45)
DX: M25.861 Other specified joint disorders, right knee (principal); Z96.651 Presence of right artificial knee joint
CPT/HCPCS: 29877; 01400; 99100; J0665; J0690; J1100; J2250; J2405; J2704; J3010; J7120